=== PATIENT | male | born 1950 | race Caucasian/White ===

== ENCOUNTER 2016-10-26 10:34 | Emergency (ER) | payer MEDICARE ==
[2016-10-26] MEDS ORDERED: TORAdol 30 mg Injection IM ONE (10:48)
[2016-10-26] MEDS ORDERED: Vistaril 50 MG/ML IM ONE ×2 (10:49→10:53)
[2016-10-26] MEDS ORDERED: TORAdol 30 mg Injection ONE (10:53)
--- NOTE | 2016-10-26 10:59 | ERPHSYRPT ---
- History of Present Illness Time Seen by Provider: 10/26/16 10:40 Source: patient, EMS Patient Subjective Stated Complaint: pt states he had a hip replacement one month ago and is c/o pain to right hip. states he has a few tramadol left at home to take. Triage Nursing Assessment: pt pink, warm, dry. surgical site intact, no redness or swelling noted. Physician History: CC: right leg pain Hx: 66 y/o patient of Dr Dowd had hip replacement last month. He had some rehab at [facility]. He is now home where he lives with his son. He has hx of chronic pain syndrome. Has ultram and norco to take at home. States norco does not help the pain anymore. He has pain in right knee and hip so called EMS and came to ER. No fever or chills. No redness. He also has some back pain from chronic degenerative disk disease. Lower Extremities Pain: hip: right, knee: right Allergies/Adverse Reactions: No Known Drug Allergies Allergy (Unverified 10/26/16 10:40) Home Medications: Gabapentin [Neurontin] 300 mg PO BID 11/04/14 [History] Glipizide 10 mg [Glucotrol 10 MG] 10 mg PO BID 11/04/14 [History] Hydrocodone Bit/Acetaminophen [Hydrocodon-Acetaminophn 10-325] 1 each PO QID [History] Levothyroxine Sodium 112 Mcg [Synthroid 112 Mcg] 112 mcg PO DAILY 11/04/14 [History] Lisinopril 10 mg [Zestril 10 MG] 40 mg PO DAILY 06/03/15 [History] Clopidogrel Bisulfate 75 mg [PLAVIX 75 MG Tablet] 75 mg PO DAILY 09/09/15 [History] Alprazolam 1 mg [Xanax 1 mg] 2 mg PO QIDPRN PRN 09/10/15 [History] Diphenhydramine HCl 25 mg [Benadryl 25 mg Capsule] 50 mg PO Q4H PRN PRN [History] Amlodipine Besylate 5 mg [Norvasc 5 mg] 5 mg PO DAILY 05/10/16 [History] Metformin HCl 500 mg [Glucophage 500 MG] 500 mg PO DAILY 05/10/16 [History ] Pantoprazole Sodium 20 mg PO DAILY 05/10/16 [History] Citalopram Hydrobromide [Celexa] 40 mg PO DAILY 08/23/16 [History] Varenicline Tartrate [Chantix] 1 mg PO DAILY 08/23/16 [History] Hx Tetanus, Diphtheria Vaccination/Date Given: Yes (up to date) Hx Influenza Vaccination/Date Given: Yes Hx Pneumococcal Vaccination/Date Given: Yes Immunizations Up to Date: Yes - Review of Systems Constitutional: No Fever, No Chills Eyes: No Symptoms Ears, Nose, & Throat: No Symptoms Respiratory: No Cough Cardiac: No Chest Pain Abdominal/Gastrointestinal: No Abdominal Pain, No Nausea, No Vomiting Genitourinary Symptoms: No Dysuria, No Hematuria Musculoskeletal: Back Pain (chronic), Joint Pain (right hip and knee) Skin: No Rash Neurological: No Focal Weakness, No Headache, No Parasthesia All Other Systems: Reviewed and Negative - Past Medical History Pertinent Past Medical History: Yes Neurological History: Peripheral Neuropathy, TIA ENT History: No Pertinent History Cardiac History: High Cholesterol, Hypertension Respiratory History: Bronchitis Endocrine Medical History: Diabetes Type II, Hypothyroidism Musculoskeletal History: Arthritis, Degenerative Disk Disease, Other GI Medical History: GERD History: No Pertinent History Psycho-Social History: Depression Male Reproductive Disorders: No Pertinent History Other Medical History: CLOGGED ARTERY IN THROAT - CHRONIC PAIN - Past Surgical History Past Surgical History: Yes Neuro Surgical History: No Pertinent History Cardiac: Cardiac Catheterization Respiratory: No Pertinent History Gastrointestinal: Appendectomy, Cholecystectomy Genitourinary: No Pertinent History Musculoskeletal: Joint Replacement, Orthopedic Surgery Male Surgical History: No Pertinent History Other Surgical History: LEFT LEG - LEFT KNEE REPLACEMENT; tonsillectomy - Social History Smoking Status: Current every day smoker How long have you smoked: 50 Exposure to second hand smoke: Yes Drug Use: none Patient Lives Alone: No Significant Family History: no pertinent family hx - Nursing Vital Signs Nursing Vital Signs: Initial Vital Signs Temperature 98.5 F Temperature Source Oral Pulse Rate 64 Respiratory Rate 18 Blood Pressure [Right Arm] 139/81 Pain Intensity 10 - Physical Exam General Appearance: alert Eyes, Ears, Nose, Throat Exam: moist mucous membranes Neck Exam: normal inspection, non-tender, supple Cardiovascular/Respiratory Exam: chest non-tender, regular rate/rhythm Gastrointestinal/Abdominal Exam: non-tender, soft Back Exam: normal inspection Neuro/Tendon Exam: normal sensation, normal motor functions Mental Status Exam: alert, oriented x 3, cooperative Skin Exam: warm, dry, No rash SpO2 Interpretation: normal SpO2: 98 Oxygen Delivery: Room Air Comments: right lateral hip incision appears well approximated with no redness, fluctuance , warmth, or drng. He has diffuse discomfort but no point tenderness. - Course Nursing assessment & vital signs reviewed: Yes - Radiology Exams right femurt X-ray Interpretation: Reviewed by me, Negative Ordered Tests: Active Orders 24 hr Category Date Time Status [facility] 10/26/16 12:02 Active FEMUR Stat Exams 10/26/16 10:48 Taken CBC W DIFF Stat Lab 10/26/16 11:00 Completed CMP Stat Lab 10/26/16 11:00 Completed Erythrocyte Sedimentation Rate Stat Lab 10/26/16 11:00 Completed Medication Summary Discontinued Medications Generic Name Dose Route Start Last Admin Trade Name Freq PRN Reason Stop Dose Admin Hydroxyzine HCl 25 mg 10/26/16 10:49 10/26/16 10:57 Vistaril 50 Mg/Ml IM 10/26/16 10:50 25 mg STAT ONE Administration Hydroxyzine HCl Confirm 10/26/16 10:53 Vistaril 50 Mg/Ml Administered 10/26/16 10:54 Dose 50 mg IM .STK-MED ONE Ketorolac Tromethamine 30 mg 10/26/16 10:48 10/26/16 10:57 Toradol 30 Mg Injection IM 10/26/16 10:49 30 mg STAT ONE Administration Ketorolac Tromethamine Confirm 10/26/16 10:53 Toradol 30 Mg Injection Administered 10/26/16 10:54 Dose 30 mg .ROUTE .STK-MED ONE Lab/Rad Data: Laboratory Result Diagrams 10/26/16 11:00 10/26/16 11:00 Laboratory Results 10/26/16 10/26/16 10/26/16 Range/Units 11:00 11:00 11:00 WBC 8.8 (4.0-10.5) K/mm3 RBC 4.09 L (4.1-5.6) M/mm3 Hgb 11.0 L (12.5-18.0) gm/dl Hct 35.2 L (42-50) % MCV 86.1 (78-100) fl MCH 26.8 (26-32) pg MCHC 31.3 L (32-36) g/dl RDW 13.8 (11.5-14.0) % Plt Count 260 (150-450) K/mm3 MPV 8.8 (6-9.5) fl Gran % 58.8 (36.0-66.0) % Lymphocytes % 29.4 (24.0-44.0) % Monocytes % 8.4 (0.0-12.0) % Eosinophils % 2.9 (0.00-5.0) % Basophils % 0.5 (0.0-0.4) % Basophils # 0.04 (0-0.4) ESR 7 (0-15) mm/hr Sodium 139 (136-145) mEq/L Potassium 4.3 (3.5-5.1) mEq/L Chloride 107 (98-107) mEq/L Carbon Dioxide 22.3 (21-32) mEq/L Anion Gap 13.5 (5-15) MEQ/L BUN 17 (9-20) mg/dL Creatinine 1.65 H (0.55-1.30) mg/dl Estimated GFR 45 ML/MIN Glucose 106 (70-110) MG/DL Calcium 8.6 (8.5-10.1) mg/dL Total Bilirubin 0.1 L (0.2-1.0) mg/dL AST 15 (15-37) U/L ALT < 6 L (12-78) U/L Alkaline Phosphatase 102 (46-116) U/L Serum Total Protein 6.5 (6.4-8.2) gm/dL Albumin 3.5 (3.4-5.0) g/dL - Progress Progress Note: 10/26/16 12:03 Xray reassuring. Labs ressuring. He wants an monster for knee. He has pain meds at home. Will ambulate and release home to follow up with Dr Dowd. Counseled pt/family regarding: lab results, diagnosis, need for follow-up, rad results - Departure Time of Disposition: 12:03 Departure Disposition: Home Clinical Impression: Diabetes, Right leg pain, History of arthroplasty of right hip, Chronic pain syndrome Condition: Stable Critical Care Time: No Referrals: BERNADETTE LAKE [Primary Care Provider] - JULIA DOWD [ACTIVE STAFF] - Instructions: Chronic Pain -- Adult, Leg Pain Additional Instructions: Call Dr Dowd Friday for follow up. No driving and stay with family. Take your ultram or norco as already prescribed.
[2016-10-26 11:24] LABS: BASOPHIL % 0.5 % (0.0-0.4); Eosinophil % 2.9 % (0.00-5.0); Granulocytes % 58.8 % (36.0-66.0); Lymphocytes % 29.4 % (24.0-44.0); Mean Cell Volume 86.1 fl (78-100); Mean Corpuscular Hemoglobin 26.8 pg (26-32); Mean Platelet Volume 8.8 fl (6-9.5); Monocytes % 8.4 % (0.0-12.0); Platelet Count 260 K/mm3 (150-450); Red Blood Count 4.09 M/mm3 (4.1-5.6); Red Cell Distribution Width 13.8 % (11.5-14.0); White Blood Count 8.8 K/mm3 (4.0-10.5)
[2016-10-26 11:34] LABS: ALBUMIN 3.5 g/dL (3.4-5.0); ALKALINE PHOSPHATASE 102 U/L (46-116); ANION GAP 13.5 MEQ/L (5-15); BILIRUBIN,TOTAL 0.1 mg/dL (0.2-1.0); BLOOD UREA NITROGEN 17 mg/dL (9-20); CHLORIDE 107 mEq/L (98-107); Carbon Dioxide 22.3 mEq/L (21-32); Glucose 106 MG/DL (70-110); Potassium 4.3 mEq/L (3.5-5.1); SGOT/AST 15 U/L (15-37); SODIUM 139 mEq/L (136-145); Total Protein 6.5 gm/dL (6.4-8.2)
[2016-10-26 11:55] LABS: SGPT/ALT < 6 U/L (12-78)
[2016-10-26 12:43] VITALS: BP 127/70; PULSE 78; O2SAT 100
--- NOTE | 2016-10-26 20:30 | XRAY ---
Indication: Pain. Comparison: August 11, 2016. 2 views of the right femur demonstrates interval total hip arthroplasty with intact bipolar prosthesis and 2 acetabular screws. Stable minimal scattered vascular calcifications. No other bony, articular, or soft tissue abnormalities.
== END 2016-10-26 12:43 | disposition home or self-care (01) ==
LOC: ED 10:34
DX: M25.551 Pain in right hip (principal); E11.9 Type 2 diabetes mellitus without complications; G89.4 Chronic pain syndrome; Z98.890 Other specified postprocedural states
CPT/HCPCS: 36415; 73552; 80053; 85025; 85652; 96372; 99283; 99284; J1885; J3410

== ENCOUNTER 2017-01-19 13:52 | Emergency (ER) | payer MEDICARE, OTHER ==
[2017-01-19 14:00] VITALS: PULSE 87
[2017-01-19] MEDS ORDERED: TORAdol 30 mg Injection IM ONE (14:21)
[2017-01-19] MEDS ORDERED: TORAdol 30 mg Injection ONE (14:26)
--- NOTE | 2017-01-19 14:26 | ERPHSYRPT ---
- History of Present Illness Time Seen by Provider: 01/19/17 14:21 Source: patient Exam Limitations: no limitations Patient Subjective Stated Complaint: fall last week--lt arm pain Triage Nursing Assessment: states lost balance last week and hit lt upper arm against tractor tire. saw dr barillas last week for pain and dx strain. states pain to lt upper arm worse to mid arm. no bruising or swelling noted. radial pulse present. states posisiton of comfort is arm bent at elbow held against body. Physician History: fall last week--lt arm pain. states lost balance last week and hit lt upper arm against tractor tire. saw dr barillas last week for pain and dx strain. states pain to lt upper arm worse to mid arm. no other injury, no other symptoms Occurred: last week Method of Injury: fell Quality: constant Severity of Pain-Max: moderate Severity of Pain-Current: moderate Extremities Pain Location: arm: left Allergies/Adverse Reactions: No Known Drug Allergies Allergy (Unverified 01/19/17 14:01) Home Medications: Gabapentin [Neurontin] 300 mg PO BID 11/04/14 [History] Glipizide 10 mg [Glucotrol 10 MG] 10 mg PO BID 11/04/14 [History] Hydrocodone Bit/Acetaminophen [Hydrocodon-Acetaminophn 10-325] 1 each PO QID [History] Levothyroxine Sodium 112 Mcg [Synthroid 112 Mcg] 112 mcg PO DAILY 11/04/14 [History] Lisinopril 10 mg [Zestril 10 MG] 40 mg PO DAILY 06/03/15 [History] Clopidogrel Bisulfate 75 mg [PLAVIX 75 MG Tablet] 75 mg PO DAILY 09/09/15 [History] Alprazolam 1 mg [Xanax 1 mg] 2 mg PO QIDPRN PRN 09/10/15 [History] Diphenhydramine HCl 25 mg [Benadryl 25 mg Capsule] 50 mg PO Q4H PRN PRN [History] Amlodipine Besylate 5 mg [Norvasc 5 mg] 5 mg PO DAILY 05/10/16 [History] Metformin HCl 500 mg [Glucophage 500 MG] 500 mg PO DAILY 05/10/16 [History ] Pantoprazole Sodium 20 mg PO DAILY 05/10/16 [History] Citalopram Hydrobromide [Celexa] 40 mg PO DAILY 08/23/16 [History] Varenicline Tartrate [Chantix] 1 mg PO DAILY 08/23/16 [History] Hx Tetanus, Diphtheria Vaccination/Date Given: Yes Hx Influenza Vaccination/Date Given: No Hx Pneumococcal Vaccination/Date Given: No Immunizations Up to Date: Yes - Review of Systems Constitutional: No Symptoms Eyes: No Symptoms Ears, Nose, & Throat: No Symptoms Respiratory: No Symptoms Cardiac: No Symptoms Abdominal/Gastrointestinal: No Symptoms Musculoskeletal: Fall, Injury, Other (left arm pain), No Deformity - Past Medical History Pertinent Past Medical History: Yes Neurological History: Peripheral Neuropathy, TIA ENT History: No Pertinent History Cardiac History: High Cholesterol, Hypertension Respiratory History: Bronchitis Endocrine Medical History: Diabetes Type II, Hypothyroidism Musculoskeletal History: Arthritis, Degenerative Disk Disease, Other GI Medical History: GERD History: No Pertinent History Psycho-Social History: Depression Male Reproductive Disorders: No Pertinent History Other Medical History: CLOGGED ARTERY IN THROAT - CHRONIC PAIN - Past Surgical History Past Surgical History: Yes Neuro Surgical History: No Pertinent History Cardiac: Cardiac Catheterization Respiratory: No Pertinent History Gastrointestinal: Appendectomy, Cholecystectomy Genitourinary: No Pertinent History Musculoskeletal: Joint Replacement, Orthopedic Surgery Male Surgical History: No Pertinent History Other Surgical History: LEFT LEG - LEFT KNEE REPLACEMENT; tonsillectomy - Social History Smoking Status: Current every day smoker How long have you smoked: 50 Exposure to second hand smoke: No Drug Use: none Patient Lives Alone: No Significant Family History: no pertinent family hx - Nursing Vital Signs Nursing Vital Signs: Initial Vital Signs Temperature 97.9 F Temperature Source Oral Pulse Rate 87 Respiratory Rate 18 Blood Pressure [Right Arm] 175/100 Pain Intensity 10 - Physical Exam General Appearance: no apparent distress Shoulder Exam: normal inspection Elbow/Forearm Exam: normal inspection, bone tenderness, limited ROM, pain, soft tissue tenderness, swelling, No deformity, No ecchymosis SpO2: 97 Oxygen Delivery: Room Air - Course Nursing assessment & vital signs reviewed: Yes - Radiology Exams Humerus X-ray Interpretation: Reviewed by me, Negative, No Fracture Ordered Tests: Active Orders 24 hr Category Date Time Status HUMERUS Stat Exams 01/19/17 14:03 Taken - Progress Progress: unchanged, pain not gone completely Counseled pt/family regarding: diagnosis, need for follow-up, rad results - Departure Time of Disposition: 14:24 Departure Disposition: Home Clinical Impression: Arm pain, lateral Qualifiers: Laterality: left Qualified Code(s): M79.602 - Pain in left arm Condition: Stable Critical Care Time: No Referrals: BERNADETTE BARILLAS [Primary Care Provider] - Instructions: Prevent Falls, Contusion Additional Instructions: SPRAINS/STRAINS/CONTUSIONS 1. Rest the affected area as much as possible for the next few days. 2. Apply ice to the affected area for 20-30 minutes at a time, several times a day. 3. If you receive an elastic wrap, wear it only while awake for comfort and support. Re-wrap the elastic wrap if it feels too tight or too loose. 4. If swelling is present, elevate the affected part above the level of the heart for at least 2 to 3 days. 5. Use splints, slings, or crutches as instructed. 6. Watch for severe swelling, coldness, numbness, and discoloration of the fingers and toes. See your family physician or return to the emergency department if any of these are noted. Prescriptions: Naproxen 375 mg [Naprosyn 375 mg] 375 mg PO Q8H #30 tablet
[2017-01-19 14:41] VITALS: BP 134/70; O2SAT 99
--- NOTE | 2017-01-19 19:28 | XRAY ---
Indication: Pain. Fall one week ago. Comparison: None 2 views of the left humerus demonstrates mild acromioclavicular degenerative arthropathy and a few pulmonary calcified granulomas. No other bony, articular, or soft tissue abnormalities.
== END 2017-01-19 14:41 | disposition home or self-care (01) ==
LOC: ED 13:52
DX: M79.602 Pain in left arm (principal)
CPT/HCPCS: 73060; 96372; 99283; J1885

== ENCOUNTER 2020-02-09 07:42 | Day surgery (SDC) | payer MEDICARE ==
[2020-02-09] MEDS ORDERED: Depo-Medrol 40 MG/ML IM ONE (07:43)
[2020-02-09] MEDS ORDERED: Marcaine 0.5% SDV 10 ML IM ONE (07:43)
[2020-02-09] MEDS ORDERED: DIPRIVAN 200 MG/20 ML IV ONE (09:27)
[2020-02-09] MEDS ORDERED: Ketamine HCl 50 MG/ML ONE (09:27)
--- NOTE | 2020-02-09 10:57 | XRAY ---
Indication: Bilateral SI joint injection. Intraoperative fluoroscopy was provided for 7 seconds. 4 digital spot images submitted for interpretation demonstrates posterior needle tip projecting over the inferior left and right SI joint. Correlate with intraoperative findings/report. Incidental partially visualized right hip arthroplasty.
--- NOTE | 2020-02-09 11:13 | XRAY ---
7 seconds fluoroscopy time in surgery for bilateral SI joint injections.
[2020-02-09] MEDS ORDERED: Lactated Ringers 1,000 ML IV ONE (14:44)
== END 2020-02-09 09:50 | disposition home or self-care (01) ==
LOC: SDC-PAIN 07:42
PROVIDERS: ATTEND Psychiatry & Neurology Pain Medicine
DX: M46.1 Sacroiliitis, not elsewhere classified (principal); E11.9 Type 2 diabetes mellitus without complications; I10 Essential (primary) hypertension; K21.9 Gastro-esophageal reflux disease without esophagitis; Z79.899 Other long term (current) drug therapy
CPT/HCPCS: 72202; 77002; 82962; G0260; 27096; J1030; J2704

== ENCOUNTER 2021-05-02 08:18 | Day surgery (SDC) | payer MEDICARE ==
[2021-05-02] MEDS ORDERED: Depo-Medrol 40 MG/ML IM ONE (08:19)
[2021-05-02] MEDS ORDERED: LIDOCAINE HCL 2% 100 MG/5 ML IJ ONE (08:19)
[2021-05-02] MEDS ORDERED: DIPRIVAN 200 MG/20 ML IV ONE (10:15)
[2021-05-02] MEDS ORDERED: Lactated Ringers 1,000 ML IV ONE (10:31)
--- NOTE | 2021-05-02 17:09 | XRAY ---
7 seconds of fluoroscopy used in surgery for a bilateral L4-S1 MBB.
--- NOTE | 2021-05-04 09:27 | XRAY ---
Indication: Bilateral L4-S1 MBB. Intraoperative fluoroscopy was provided for 7 seconds. A single digital spot image submitted for interpretation demonstrates posterior spinal needle tips projected over the expected course of the left and right L4-S1 nerve roots. Correlate with intraoperative findings/report.
== END 2021-05-02 10:40 | disposition home or self-care (01) ==
LOC: SDC-PAIN 08:18
PROVIDERS: ATTEND Psychiatry & Neurology Pain Medicine
DX: M47.816 Spondylosis without myelopathy or radiculopathy, lumbar region (principal); Z79.899 Other long term (current) drug therapy; E11.9 Type 2 diabetes mellitus without complications
CPT/HCPCS: 64493; 64494; 72020; 77002; 82947; J1030; J2704

== ENCOUNTER 2021-06-06 10:49 | Day surgery (SDC) | payer MEDICARE ==
[2021-06-06] MEDS ORDERED: Depo-Medrol 40 MG/ML IM ONE (10:50)
[2021-06-06] MEDS ORDERED: BUPIVACAINE 0.5% VIAL IJ ONE (10:50)
[2021-06-06] MEDS ORDERED: DIPRIVAN 200 MG/20 ML IV ONE (11:46)
[2021-06-06] MEDS ORDERED: Ketamine HCl 50 MG/ML ONE (11:50)
[2021-06-06] MEDS ORDERED: Lactated Ringers 1,000 ML IV ONE (16:13)
--- NOTE | 2021-06-07 11:29 | XRAY ---
10 seconds fluoroscopy time in surgery for bilateral L4-S1 MBB.
--- NOTE | 2021-06-09 22:44 | XRAY ---
Indication: Bilateral L4-S1 MBB. Intraoperative fluoroscopy was provided for 10 seconds. A single digital spot image submitted for interpretation demonstrates posterior needle tips projected over the expected left and right L4-S1 nerve roots. Correlate with intraoperative findings/report.
== END 2021-06-06 12:18 | disposition home or self-care (01) ==
LOC: SDC-PAIN 10:49
PROVIDERS: ATTEND Psychiatry & Neurology Pain Medicine
DX: M47.816 Spondylosis without myelopathy or radiculopathy, lumbar region (principal); E11.9 Type 2 diabetes mellitus without complications; Z79.899 Other long term (current) drug therapy
CPT/HCPCS: 64493; 64494; 72020; 77002; 82947; J1030; J2704

== ENCOUNTER 2021-07-25 08:52 | Day surgery (SDC) | payer MEDICARE ==
[2021-07-25] MEDS ORDERED: Xylocaine 1% Vial 30 ML PF IJ ONE (08:53)
[2021-07-25] MEDS ORDERED: Depo-Medrol 40 MG/ML IM ONE (08:53)
[2021-07-25] MEDS ORDERED: BUPIVACAINE 0.5% VIAL IJ ONE (08:53)
[2021-07-25] MEDS ORDERED: DIPRIVAN 200 MG/20 ML IV ONE (10:18)
[2021-07-25] MEDS ORDERED: Lactated Ringers 1,000 ML IV ONE (10:43)
--- NOTE | 2021-07-25 11:35 | XRAY ---
Indication: Left L4-S1 RFA. Intraoperative fluoroscopy provided for 11 seconds. 3 digital spot images submitted for interpretation demonstrates posterior needle tips projecting over the expected left L4-S1 nerve roots. Correlate with intraoperative findings/report.
--- NOTE | 2021-07-27 07:24 | XRAY ---
11 seconds fluoroscopy time in surgery for left L4-S1 RFA.
== END 2021-07-25 10:49 | disposition home or self-care (01) ==
LOC: SDC-PAIN 08:52
PROVIDERS: ATTEND Psychiatry & Neurology Pain Medicine
DX: M47.816 Spondylosis without myelopathy or radiculopathy, lumbar region (principal); E11.9 Type 2 diabetes mellitus without complications; I10 Essential (primary) hypertension; K21.9 Gastro-esophageal reflux disease without esophagitis; Z79.899 Other long term (current) drug therapy
CPT/HCPCS: 64635; 64636; 72100; 77002; 82947; 99100; J1030; J2001; J2704

== ENCOUNTER 2021-08-01 08:36 | Day surgery (SDC) | payer MEDICARE ==
[2021-08-01] MEDS ORDERED: Depo-Medrol 40 MG/ML IM ONE (08:37)
[2021-08-01] MEDS ORDERED: BUPIVACAINE 0.5% VIAL IJ ONE (08:37)
[2021-08-01] MEDS ORDERED: Xylocaine 1% Vial 30 ML PF IJ ONE (08:37)
[2021-08-01] MEDS ORDERED: Ketamine HCl 50 MG/ML ONE (09:49)
[2021-08-01] MEDS ORDERED: DIPRIVAN 200 MG/20 ML IV ONE (09:49)
[2021-08-01] MEDS ORDERED: Lactated Ringers 1,000 ML IV ONE (10:37)
--- NOTE | 2021-08-01 12:33 | XRAY ---
Indication: Right L4-S1 RFA. Intraoperative fluoroscopy provided for 16 seconds. 3 digital spot images submitted for interpretation demonstrates posterior needle tips projecting over the expected right L4-S1 nerve roots. Correlate with intraoperative findings/report.
--- NOTE | 2021-08-01 12:37 | XRAY ---
16 seconds fluoroscopy time in surgery for right L4-S1 RFA.
== END 2021-08-01 10:30 | disposition home or self-care (01) ==
LOC: SDC-PAIN 08:36
PROVIDERS: ATTEND Psychiatry & Neurology Pain Medicine
DX: M47.816 Spondylosis without myelopathy or radiculopathy, lumbar region (principal); Z79.891 Long term (current) use of opiate analgesic; E11.8 Type 2 diabetes mellitus with unspecified complications; Z79.84 Long term (current) use of oral hypoglycemic drugs
CPT/HCPCS: 64635; 64636; 72100; 77002; 82947; 99100; J1030; J2001; J2704

== ENCOUNTER 2021-08-30 07:58 | Day surgery (SDC) | payer MEDICARE ==
[2021-08-30] MEDS ORDERED: Depo-Medrol 40 MG/ML IM ONE (07:59)
[2021-08-30] MEDS ORDERED: BUPIVACAINE 0.5% VIAL IJ ONE (07:59)
[2021-08-30] MEDS ORDERED: DIPRIVAN 200 MG/20 ML IV ONE (09:35)
[2021-08-30] MEDS ORDERED: Lactated Ringers 1,000 ML IV ONE (10:12)
--- NOTE | 2021-08-30 10:40 | XRAY ---
30 seconds fluoroscopy time in surgery for injections of the greater trochanters of both hips.
--- NOTE | 2021-08-30 10:44 | XRAY ---
Indication: Bilateral greater trochanter bursa injections. Intraoperative fluoroscopy provided for 30 seconds. 2 digital spot image submitted for interpretation demonstrates needle tip just lateral to the left and right greater trochanters. Small amount of contrast injected for both needle tip placement. Correlate with intraoperative findings/report. Incidental right total hip arthroplasty.
== END 2021-08-30 10:15 | disposition home or self-care (01) ==
LOC: SDC-PAIN 07:58
PROVIDERS: ATTEND Psychiatry & Neurology Pain Medicine
DX: M70.62 Trochanteric bursitis, left hip (principal); M70.61 Trochanteric bursitis, right hip; E11.9 Type 2 diabetes mellitus without complications; Z79.899 Other long term (current) drug therapy
CPT/HCPCS: 20610; 73521; 77002; 82947; J1030; J2704; Q9966

== ENCOUNTER 2022-05-29 07:35 | Day surgery (SDC) | payer MEDICARE ==
[2022-05-29] MEDS ORDERED: Sodium Chloride 0.9(Preservative Free) 10 ML IJ ONE (07:36)
[2022-05-29] MEDS ORDERED: Depo-Medrol 40 MG/ML IM ONE (07:36)
[2022-05-29] MEDS ORDERED: DIPRIVAN 200 MG/20 ML IV ONE (09:16)
[2022-05-29] MEDS ORDERED: Lactated Ringers 1,000 ML IV ONE (14:24)
--- NOTE | 2022-05-29 17:58 | XRAY ---
Indication: Right L2-L4 transforaminal NELDA. Intraoperative fluoroscopy provided for 41 seconds. 5 digital spot images submitted for interpretation demonstrates posterior needle tips projecting over the expected right L2 and L3 nerve roots. Small amount of contrast injected for needle tip placement. Correlate with intraoperative findings/report.
--- NOTE | 2022-05-29 18:34 | XRAY ---
41 seconds of fluoroscopy was used in surgery for a right L2-L4 transforaminal NELDA.
== END 2022-05-29 09:45 | disposition home or self-care (01) ==
LOC: SDC-PAIN 07:35
PROVIDERS: ATTEND Psychiatry & Neurology Pain Medicine
DX: M54.16 Radiculopathy, lumbar region (principal); E11.9 Type 2 diabetes mellitus without complications; Z79.899 Other long term (current) drug therapy
CPT/HCPCS: 64483; 64484; 72100; 77003; 82947; J1030; J2704; Q9966

== ENCOUNTER 2024-03-10 15:37 | Day surgery (SDC) | payer MEDICARE ==
[2024-03-10] MEDS ORDERED: Depo-Medrol 40 MG/ML IM ONE (15:38)
[2024-03-10] MEDS ORDERED: BUPIVACAINE 0.5% VIAL IJ ONE (15:38)
[2024-03-10] MEDS ORDERED: DIPRIVAN 200 MG/20 ML IV ONE (18:06)
--- NOTE | 2024-03-10 20:11 | XRAY ---
Indication: Right shoulder injection. Intraoperative fluoroscopy provided for 4 seconds. Single digital spot image submitted for interpretation demonstrates needle tip projecting over the right glenohumeral joint superiorly. Small amount of contrast injected for needle tip placement. Correlate with intraoperative findings/report.
--- NOTE | 2024-03-11 09:10 | XRAY ---
4 seconds of fluoroscopy was used in surgery for a right intra-articular shoulder injection.
== END 2024-03-10 18:35 | disposition home or self-care (01) ==
LOC: SDC-PAIN 15:37
PROVIDERS: ATTEND Psychiatry & Neurology Pain Medicine
DX: M19.011 Primary osteoarthritis, right shoulder (principal); E11.9 Type 2 diabetes mellitus without complications
CPT/HCPCS: 20610; 73030; 77002; 82947; J2704; Q9966

== ENCOUNTER 2024-06-16 08:30 | Day surgery (SDC) | payer MEDICARE ==
[2024-06-16] MEDS ORDERED: BUPIVACAINE 0.5% VIAL IJ ONE (08:31)
[2024-06-16] MEDS ORDERED: LIDOCAINE HCL 1% AMPUL 5 ML IJ ONE (08:31)
[2024-06-16] MEDS ORDERED: Depo-Medrol 40 MG/ML IM ONE (08:31)
[2024-06-16] MEDS ORDERED: DIPRIVAN 200 MG/20 ML IV ONE (10:20)
[2024-06-16] MEDS ORDERED: Lactated Ringers 1,000 ML IV ONE (11:22)
--- NOTE | 2024-06-16 11:52 | XRAY ---
Indication: Left L4-S1 RFA. Intraoperative fluoroscopy provided 20 seconds. 3 digital spot image submitted for interpretation demonstrates posterior needle tips projecting over the expected left L4-S1 nerve roots. Correlate with intraoperative findings/report.
--- NOTE | 2024-06-16 15:00 | XRAY ---
20 seconds of fluoroscopy was used in surgery for a left L4-S1 RFA.
== END 2024-06-16 10:55 | disposition home or self-care (01) ==
LOC: SDC-PAIN 08:30
PROVIDERS: ATTEND Psychiatry & Neurology Pain Medicine
DX: M47.816 Spondylosis without myelopathy or radiculopathy, lumbar region (principal); E11.9 Type 2 diabetes mellitus without complications
CPT/HCPCS: 64635; 64636; 72100; 77002; 82947; 99100; J2704

== ENCOUNTER 2024-07-21 07:56 | Day surgery (SDC) | payer MEDICARE ==
[2024-07-21] MEDS ORDERED: Depo-Medrol 40 MG/ML IM ONE (07:57)
[2024-07-21] MEDS ORDERED: BUPIVACAINE 0.5% VIAL IJ ONE (07:57)
[2024-07-21] MEDS ORDERED: LIDOCAINE HCL 1% AMPUL 5 ML IJ ONE (07:57)
[2024-07-21] MEDS ORDERED: Xylocaine-Mpf 2% 5 Ml Vial ONE (09:52)
[2024-07-21] MEDS ORDERED: DIPRIVAN 200 MG/20 ML IV ONE (09:52)
--- NOTE | 2024-07-21 11:42 | XRAY ---
Indication: Right L4-S1 RFA. Intraoperative fluoroscopy provided for 17 seconds. 3 digital spot image submitted for interpretation demonstrates posterior needle tips projecting over the expected right L4-S1 nerve roots. Correlate with intraoperative findings/report.
--- NOTE | 2024-07-21 11:45 | XRAY ---
17 seconds of fluoroscopy was used in surgery for a right L4-S1 RFA.
== END 2024-07-21 10:28 | disposition home or self-care (01) ==
LOC: SDC-PAIN 07:56
PROVIDERS: ATTEND Psychiatry & Neurology Pain Medicine
DX: M47.816 Spondylosis without myelopathy or radiculopathy, lumbar region (principal); E11.9 Type 2 diabetes mellitus without complications
CPT/HCPCS: 72100; 77002; 82947; J2704

== ENCOUNTER 2025-06-29 17:00 | Emergency (ER) | payer MEDICARE ==
--- NOTE | 2025-06-29 17:15 | ERPHSYRPT ---
- History of Present Illness Time Seen by Provider: 06/29/25 17:03 Source: patient Physician History: This is 75-year-old male who has been having severe left flank pain going down into the left buttock region. Patient was at pain clinic yesterday and received an injection into his L-spine. He has an MRI which shows some degenerative changes but no definitive disc bulging. He states the pain injection did not help him. He denied any abdominal pain. No nausea or vomiting. No chest pain. No shortness of breath. No fever or chills. No dysuria or hematuria. No history of kidney stones. Allergies/Adverse Reactions: No Known Drug Allergies Allergy (Verified 06/29/25 17:18) Home Medications: Levothyroxine Sodium 112 Mcg [Synthroid 112 Mcg] 112 mcg PO DAILY 11/04/14 [History] Lisinopril 10 mg [Zestril 10 MG] 30 mg PO DAILY 06/03/15 [History] Buspirone HCl [Bucapsol] 15 mg PO BID 06/29/25 [History] Ferrous Sulfate [Ferosul] 325 mg PO DAILY 06/29/25 [History] Hydrocodone/Acetaminophen [Hydrocodone-Acetamin 10-325 mg] 1 tab PO QID 06/29/25 [History] Insulin Aspart [Novolog] 0 unit SQ UD 06/29/25 [History] Omeprazole 20 mg PO DAILY 06/29/25 [History] Quetiapine Fumarate [Seroquel] 50 mg PO TID 06/29/25 [History] Semaglutide [Ozempic] 0.5 mg SQ WEEKLY 06/29/25 [History] Hx Tetanus, Diphtheria Vaccination/Date Given: Yes Hx Influenza Vaccination/Date Given: No Hx Pneumococcal Vaccination/Date Given: No - Review of Systems All Other Systems: Reviewed and Negative (As per HPI otherwise negative) - Past Medical History Pertinent Past Medical History: Yes Neurological History: Peripheral Neuropathy, TIA ENT History: No Pertinent History Cardiac History: High Cholesterol, Hypertension Respiratory History: Bronchitis Endocrine Medical History: Diabetes Type II, Hypothyroidism Musculoskeletal History: Arthritis, Degenerative Disk Disease, Other GI Medical History: GERD History: No Pertinent History Psycho-Social History: Depression Male Reproductive Disorders: No Pertinent History Other Medical History: CLOGGED ARTERY IN THROAT - CHRONIC PAIN - Past Surgical History Past Surgical History: Yes Neuro Surgical History: No Pertinent History Cardiac: Cardiac Catheterization Respiratory: No Pertinent History Gastrointestinal: Appendectomy, Cholecystectomy Genitourinary: No Pertinent History Musculoskeletal: Joint Replacement, Orthopedic Surgery Male Surgical History: No Pertinent History Other Surgical History: LEFT LEG - LEFT KNEE REPLACEMENT; tonsillectomy Significant Family History: no pertinent family hx - Social History Smoking Status: Current every day smoker How long have you smoked: 50 Exposure to second hand smoke: No Drug Use: none Patient Lives Alone: No - Nursing Vital Signs Nursing Vital Signs: Initial Vital Signs Temperature 98.6 F 06/29/25 17:07 Pulse Rate 67 06/29/25 17:07 Blood Pressure 159/85 06/29/25 17:07 O2 Sat by Pulse Oximetry 98 06/29/25 17:07 Pain Scale Pain Intensity [Left Lower 10 Back] Pain Intensity 10 - Physical Exam Comments: 06/29/25 17:19 General: Well-nourished well-developed. Patient in significant distress due to pain. HEENT: Normocephalic atraumatic no obvious facial or neck deformity or injury. Neck: Supple. No deformity or mass noted. CV: RRR NL Perfusion. No edema Resp: No Respiratory distress or adventitious breath sounds Abd: Nondistended. Diminished bowel sounds. No pulsatile mass. Negative Villeda sign. No tenderness over McBurney site. Very reproducible tenderness over left lower quadrant of abdomen which is worse in pain in the left flank which is more minimal. Mild pain in left gluteal region. Left lower quadrant reproduces majority of patient's symptoms. Denies history of diverticulitis or other intra-abdominal pathology. MSK: No deformity or TTP Neuro: [place] and [place] x4. No gross focal neurologic changes Psych: No SI, HI or grave disability Ordered Tests: Active Orders 24 hr Category Date Time Status NPO except Meds Diet 06/29/25 17:17 Active ABDOMEN AND PELVIS W CONTRAST [CT] Stat Exams 06/29/25 17:15 Ordered CBC W DIFF Stat Lab 06/29/25 18:19 Completed CMP Stat Lab 06/29/25 18:19 Completed LIPASE Stat Lab 06/29/25 18:19 Completed Lactic Acid Stat Lab 06/29/25 17:55 Completed MAGNESIUM Stat Lab 06/29/25 18:19 Completed UA W/RFX UR CULTURE Stat Lab 06/29/25 18:32 Completed Medication Summary Discontinued Medications Generic Name Dose Route Start Last Admin Trade Name Prasanna PRN Reason Stop Dose Admin Hydromorphone HCl 1 mg 06/29/25 17:16 06/29/25 18:01 Hydromorphone 1 Mg/1ml Inj IV 06/29/25 17:17 1 mg STAT ONE Administration Hydromorphone HCl Confirm 06/29/25 17:55 Hydromorphone 1 Mg/1ml Inj Administered 06/29/25 17:56 Dose 1 mg .ROUTE .STK-MED ONE Sodium Chloride 1,000 mls @ 999 mls/hr 06/29/25 17:16 06/29/25 18:00 Sodium Chloride 0.9% 1000 Ml IV 06/29/25 18:16 999 mls/hr .Q1H1M STA Administration Sodium Chloride Confirm 06/29/25 17:55 Sodium Chloride 0.9% 1000 Ml Administered 06/29/25 17:56 Dose 1,000 mls @ ud .ROUTE .STK-MED ONE Ondansetron HCl 4 mg 06/29/25 17:16 06/29/25 18:01 Ondansetron Hcl 4 Mg/2 Ml Vial IV 06/29/25 17:17 4 mg STAT ONE Administration Ondansetron HCl Confirm 06/29/25 17:54 Ondansetron Hcl 4 Mg/2 Ml Vial Administered 06/29/25 17:55 Dose 4 mg .ROUTE .STK-MED ONE Lab/Rad Data: Laboratory Result Diagrams 06/29/25 18:19 06/29/25 18:19 Laboratory Results 06/29/25 06/29/25 06/29/25 Range/Units 18:32 18:19 18:19 WBC 9.1 H (4.23-9.07) x10^3/uL RBC 4.75 (4.63-6.08) x10^6/uL Hgb 14.8 (13.7-17.5) g/dL Hct 44.6 (40.1-51.0) % MCV 93.9 H (79.0-92.2) fL MCH 31.2 (25.7-32.2) pg MCHC 33.2 (32.3-36.5) g/dL RDW 12.7 (11.6-14.4) % Plt Count 253 (163-337) x10^3/uL MPV 9.2 L (9.4-12.4) fL Gran % 61.6 (34.0-67.9) % Immature Gran % (Auto) 0.3 (0.001-0.429) % Nucleat RBC Rel Count 0.0 (0.00-0.2) % Eos # (Auto) 0.16 (0.04-0.54) x10^3/uL Immature Gran # (Auto) 0.03 (0.001-0.031) x10^3u/L Absolute Lymphs (auto) 2.52 (1.32-3.57) x10^3/uL Absolute Monos (auto) 0.73 (0.30-0.82) x10^3/uL Absolute Nucleated RBC 0.00 (0.00-0.012) x10^3u/L Lymphocytes % 27.7 (21.8-53.1) % Monocytes % 8.0 (5.3-12.2) % Eosinophils % 1.8 (0.8-7.0) % Basophils % 0.6 (0.2-1.2) % Absolute Granulocytes 5.60 H (1.78-5.38) x10^3/uL Basophils # 0.05 (0.01-0.08) x10^3/uL Sodium 138 (135-145) mmol/L Potassium 4.3 (3.5-5.1) mmol/L Chloride 103 (98-107) mmol/L Carbon Dioxide 25 (22-30) mmol/L Anion Gap 13.9 (5-15) MEQ/L BUN 17 (9-20) mg/dL Creatinine 0.99 (0.66-1.25) mg/dL Estimated GFR 79.4 ML/MIN Glucose 123 H (74-106) mg/dL Lactic Acid (0.4-2.0) Calcium 10.3 H (8.4-10.2) mg/dL Magnesium 1.6 (1.6-2.3) mg/dL Total Bilirubin 0.50 (0.2-1.3) mg/dL AST 33 (17-59) U/L ALT 18 (0-50) U/L Alkaline Phosphatase 80 (38-126) U/L Serum Total Protein 7.0 (6.3-8.2) g/dL Albumin 4.7 (3.5-5.0) g/dL Lipase 216 (23-300) U/L Urine Color Yellow (Yellow) Urine Appearance Clear (Clear) Urine pH 5.5 (4.6-8.0) Ur Specific [place] <=1.005 (1.005-1.030) Urine Protein Negative (Negative) Urine Glucose (UA) Negative (Negative) mg/dL Urine Ketones Negative (Negative) Urine Blood Negative (Negative) Urine Nitrite Negative (Negative) Urine Bilirubin Negative (Negative) Urine Urobilinogen 0.2 (0.2) mg/dL Ur Leukocyte Esterase Negative (Negative) U Hyaline Cast (Auto) NONE SEEN (0-2) /LPF Urine Microscopic RBC 0-2 (0-5) /HPF Urine Microscopic WBC 0-2 (0-5) /HPF Ur Epithelial Cells None Seen (None Seen) /HPF Urine Bacteria None Seen (None Seen) /HPF Urine Culture Reflexed NO (NO) 06/29/25 Range/Units 17:55 WBC (4.23-9.07) x10^3/uL RBC (4.63-6.08) x10^6/uL Hgb (13.7-17.5) g/dL Hct (40.1-51.0) % MCV (79.0-92.2) fL MCH (25.7-32.2) pg MCHC (32.3-36.5) g/dL RDW (11.6-14.4) % Plt Count (163-337) x10^3/uL MPV (9.4-12.4) fL Gran % (34.0-67.9) % Immature Gran % (Auto) (0.001-0.429) % Nucleat RBC Rel Count (0.00-0.2) % Eos # (Auto) (0.04-0.54) x10^3/uL Immature Gran # (Auto) (0.001-0.031) x10^3u/L Absolute Lymphs (auto) (1.32-3.57) x10^3/uL Absolute Monos (auto) (0.30-0.82) x10^3/uL Absolute Nucleated RBC (0.00-0.012) x10^3u/L Lymphocytes % (21.8-53.1) % Monocytes % (5.3-12.2) % Eosinophils % (0.8-7.0) % Basophils % (0.2-1.2) % Absolute Granulocytes (1.78-5.38) x10^3/uL Basophils # (0.01-0.08) x10^3/uL Sodium (135-145) mmol/L Potassium (3.5-5.1) mmol/L Chloride (98-107) mmol/L Carbon Dioxide (22-30) mmol/L Anion Gap (5-15) MEQ/L BUN (9-20) mg/dL Creatinine (0.66-1.25) mg/dL Estimated GFR ML/MIN Glucose (74-106) mg/dL Lactic Acid 1.1 (0.4-2.0) Calcium (8.4-10.2) mg/dL Magnesium (1.6-2.3) mg/dL Total Bilirubin (0.2-1.3) mg/dL AST (17-59) U/L ALT (0-50) U/L Alkaline Phosphatase (38-126) U/L Serum Total Protein (6.3-8.2) g/dL Albumin (3.5-5.0) g/dL Lipase (23-300) U/L Urine Color (Yellow) Urine Appearance (Clear) Urine pH (4.6-8.0) Ur Specific [place] (1.005-1.030) Urine Protein (Negative) Urine Glucose (UA) (Negative) mg/dL Urine Ketones (Negative) Urine Blood (Negative) Urine Nitrite (Negative) Urine Bilirubin (Negative) Urine Urobilinogen (0.2) mg/dL Ur Leukocyte Esterase (Negative) U Hyaline Cast (Auto) (0-2) /LPF Urine Microscopic RBC (0-5) /HPF Urine Microscopic WBC (0-5) /HPF Ur Epithelial Cells (None Seen) /HPF Urine Bacteria (None Seen) /HPF Urine Culture Reflexed (NO) - Progress Progress Note: 06/29/25 18:12 Will endorse patient care to oncoming emergency physician Dr. Fontaine who will assume final evaluation, treatment and disposition of patient. - Departure Departure Disposition: Observation (In the emergency department under care of Dr. Fontaine.) Clinical Impression: Flank pain, left side Abdominal pain Qualifiers: Abdominal location: left lower quadrant Qualified Code(s): R10.32 - Left lower quadrant pain Condition: Stable Critical Care Time: No Referrals: [facility] [Primary Care Provider, [facility]] - Follow up/PCP as directed
[2025-06-29 17:17] VITALS: TEMP 98.6
[2025-06-29] MEDS ORDERED: Zofran 4 MG/2 ML VIAL ONE (17:54)
[2025-06-29] MEDS ORDERED: Hydromorphone 1 mg/ml Injection ONE (17:55)
[2025-06-29] MEDS: Hydromorphone 1 mg/ml Injection IV ONE (18:01)
[2025-06-29] MEDS: Zofran 4 MG/2 ML VIAL IV ONE (18:01)
[2025-06-29 18:21] LABS: BASOPHIL % 0.6 % (0.2-1.2); Basophil (Absolute #) 0.05 x10^3/uL (0.01-0.08); Eosinophil (Absolute #) 0.16 x10^3/uL (0.04-0.54); Hematocrit 44.6 % (40.1-51.0); Hemoglobin 14.8 g/dL (13.7-17.5); IMMATURE GRAN # 0.03 x10^3u/L (0.001-0.031); IMMATURE GRAN % 0.3 % (0.001-0.429); Lymphocyte (Absolute #) 2.52 x10^3/uL (1.32-3.57); Mean Corpuscular Hemoglobin 31.2 pg (25.7-32.2); Mean Corpuscular Hgb Concent. 33.2 g/dL (32.3-36.5); Monocyte (Absolute #) 0.73 x10^3/uL (0.30-0.82); NUCLEATED RBC # 0.00 x10^3u/L (0.00-0.012); NUCLEATED RBC % 0.0 % (0.00-0.2); Platelet Count 253 x10^3/uL (163-337); Red Blood Count 4.75 x10^6/uL (4.63-6.08); White Blood Count 9.1 x10^3/uL (4.23-9.07)
[2025-06-29 18:34] LABS: Calcium 10.3 mg/dL (8.4-10.2); Carbon Dioxide 25.0 mmol/L (22-30); Creatinine 1 0.99 mg/dL (0.66-1.25); EST GLOMERULAR FILTRATION RATE 79.4 ML/MIN; Glucose 123.0 mg/dL (74-106); Potassium 4.3 mmol/L (3.5-5.1); SGOT/AST 33.0 U/L (17-59); SGPT/ALT 18.0 U/L (0-50); Total Protein 7.0 g/dL (6.3-8.2)
[2025-06-29 18:43] LABS: Glucose, Urine Negative (Negative); Protein,Urine Dip Negative (Negative); RBC 0-2 /HPF (0-5); WBC 0-2 /HPF (0-5)
[2025-06-29 20:05] VITALS: RESP 18
[2025-06-29] MEDS ORDERED: MORPHINE SULFATE 4 MG INJ ONE (20:57)
[2025-06-29] MEDS: MORPHINE SULFATE 4 MG INJ IV ONE (20:58)
[2025-06-29 21:02] VITALS: BP 143/96; PULSE 68; O2SAT 94
--- NOTE | 2025-06-30 08:33 | XRAY ---
Indication: Left lower quadrant abdominal pain. Multiple contiguous axial images obtained through the abdomen and pelvis using 80 cc Isovue 370 contrast. Comparison: July 06, 2015 Lung bases clear again with a few tiny right base calcified granulomas. Heart not enlarged. Interval right total hip arthroplasty with beam artifact from prosthesis. Noncontrasted stomach and bowel loops appear nonobstructed. There is again mild diffuse scattered colonic fecal debris. Again tiny right/small left renal cysts, tiny splenic calcified granulomas, cholecystectomy, and appendectomy. No free fluid/air. Remaining liver, pancreas, spleen, adrenal glands, kidneys, ureters, and bladder are unremarkable. There remains mild scattered aortoiliac calcifications. No AAA or pathologic retroperitoneal lymphadenopathy. Osseous structures intact. Impression: 1. New beam artifact from right hip arthroplasty. 2. Again mild diffuse colonic fecal stasis, bilateral renal cysts, arteriosclerotic disease, and old granulomatous disease. 3. Remaining CT abdomen/pelvis with contrast exam continues to be negative.
== END 2025-06-29 21:18 | disposition home or self-care (01) ==
LOC: ED 17:00
DX: R10.A2 Flank pain, left side (principal); R10.32 Left lower quadrant pain; M25.552 Pain in left hip; K59.00 Constipation, unspecified; N28.1 Cyst of kidney, acquired; I10 Essential (primary) hypertension; E11.42 Type 2 diabetes mellitus with diabetic polyneuropathy; Z79.891 Long term (current) use of opiate analgesic; Z79.4 Long term (current) use of insulin; Z79.85 Long-term (current) use of injectable non-insulin antidiabetic drugs; Z79.899 Other long term (current) drug therapy; Z72.0 Tobacco use

== ENCOUNTER 2025-07-20 12:35 | Day surgery (SDC) | payer MEDICARE ==
[2025-07-20] MEDS ORDERED: Sodium Chloride 0.9(Preservative Free) 10 ML IJ ONE (12:36)
[2025-07-20] MEDS ORDERED: propofoL IV ONE (16:51)
[2025-07-20] MEDS ORDERED: Lactated Ringers 1,000 ML IV ONE (18:15)
--- NOTE | 2025-07-21 08:41 | XRAY ---
Indication: Left L4-S1 transforaminal NELDA Intraoperative fluoroscopy provided for 32 seconds. 4 digital spot images submitted for interpretation demonstrates posterior needle tips projecting over expected left L4 and L5 nerve roots. Small amount of contrast injected for needle tip placement. Correlate with intraoperative findings/report.
--- NOTE | 2025-07-21 09:35 | XRAY ---
32 seconds of fluoroscopy was used in surgery for a left L4-S1 transforaminal NELDA.
== END 2025-07-20 17:25 | disposition home or self-care (01) ==
LOC: SDC-PAIN 12:35
PROVIDERS: ATTEND Psychiatry & Neurology Pain Medicine
DX: M54.16 Radiculopathy, lumbar region (principal); E11.9 Type 2 diabetes mellitus without complications